=== PATIENT | female | born 1940 | race American Indian/Alaskan Native ===

== ENCOUNTER 2019-06-22 02:31 | Emergency (ER) | payer MEDICARE ==
[2019-06-22] MEDS ORDERED: cloNIDine 0.2 MG TAB PO ONE (04:03)
[2019-06-22] MEDS ORDERED: cloNIDine 0.2 MG TAB ONE (04:06)
--- NOTE | 2019-06-22 04:07 | Emergency Department Report ---
ED General Adult HPI - General Chief complaint: High BP Stated complaint: HYPERTENSION/HIGH BP Time Seen by Provider: 06/22/19 03:57 Source: patient, EMS Mode of arrival: Ambulatory Limitations: No Limitations - History of Present Illness Initial comments: Patient is 78 years old female with history of hypertension and history of mitral valve prolapse. Patient presented to the ER accompanied by her 2 daughters for evaluation of high blood pressure. Patient stated that since yesterday she noticed that her blood pressure is high. Patient stated that she is compliant with her medication which is metoprolol 50 mg daily. Patient denied any headache, neck pain, chest pain, shortness of breath, abdominal pain, weakness numbness or tingling sensation. - Related Data Allergies Allergy/AdvReac Type Severity Reaction Status Date / Time No Known Allergies Allergy Verified 06/22/19 04:06 ED Review of Systems ROS: Stated complaint: HYPERTENSION/HIGH BP Other details as noted in HPI Comment: All other systems reviewed and negative Constitutional: denies: chills, fever Respiratory: denies: shortness of breath Cardiovascular: denies: chest pain Gastrointestinal: denies: abdominal pain, nausea, vomiting Neurological: denies: headache, weakness, numbness, paresthesias, confusion, abnormal gait ED Past Medical Hx - Past Medical History Previous Medical History?: Yes Hx Hypertension: Yes Additional medical history: Mitral valve prolapse, heart murmur, irregular heartbeat - Surgical History Past Surgical History?: Yes Additional Surgical History: Catarack - Social History Smoking Status: Never Smoker Substance Use Type: None ED Physical Exam - General Limitations: No Limitations General appearance: alert, in no apparent distress - Head Head exam: Present: atraumatic, normocephalic, normal inspection - Eye Eye exam: Present: normal appearance - ENT ENT exam: Present: normal exam, normal orophraynx, mucous membranes moist - Neck Neck exam: Present: normal inspection, full ROM. Absent: tenderness, meningismus, lymphadenopathy, thyromegaly - Respiratory Respiratory exam: Present: normal lung sounds bilaterally - Cardiovascular Cardiovascular Exam: Present: regular rate, normal rhythm, normal heart sounds - GI/Abdominal GI/Abdominal exam: Present: soft, normal bowel sounds. Absent: distended, tenderness, guarding, rebound, rigid, organomegaly, mass, bruit, pulsatile mass, hernia - Extremities Exam Extremities exam: Present: normal inspection, full ROM, normal capillary refill - Back Exam Back exam: Present: normal inspection, full ROM. Absent: CVA tenderness (R), CVA tenderness (L), muscle spasm, paraspinal tenderness, vertebral tenderness - Neurological Exam Neurological exam: Present: alert, oriented X3, CN II-XII intact, normal gait, reflexes normal - Psychiatric Psychiatric exam: Present: normal mood - Skin Skin exam: Present: warm, intact, normal color ED Course Vital Signs 06/22/19 06/22/19 02:50 04:06 Temperature 98.7 F Pulse Rate 70 87 Respiratory 18 Rate Blood Pressure 188/84 204/84 O2 Sat by Pulse 99 Oximetry ED Medical Decision Making - Lab Data Result diagrams: 06/22/19 04:08 06/22/19 04:08 - Medical Decision Making Patient is 78 years old female with history of hypertension and history of thaddeus ral valve prolapse. Patient presented to the ER accompanied by her 2 daughters for evaluation of high blood pressure. Patient stated that since yesterday she noticed that her blood pressure is high. Patient stated that she is compliant with her medication which is metoprolol 50 mg daily. Patient denied any headache, neck pain, chest pain, shortness of breath, abdominal pain, weakness numbness or tingling sensation. BP in ER 214/96 Patient remain asymptomatic in the emergency room. Patient received clonidine 0.2 mg that brought the blood pressure down to 139/65. Patient advised to follow-up with our primary care physician in the next 2-3 days for adjustment of our blood pressure medicine. Patient also advised to return to the ER if she developed any new symptoms. Critical care attestation.: If time is entered above; I have spent that time in minutes in the direct care of this critically ill patient, excluding procedure time. ED Disposition Clinical Impression: Malignant hypertension Disposition: DC-01 TO HOME OR SELFCARE Is pt being admited?: No Condition: Stable Instructions: Hypertension (ED) Referrals: PRIMARY CARE, [Referring] - 3-5 Days
[2019-06-22 04:39] LABS: Basophils % (Auto) 0.5 % (0.0-1.8); Eosinophils % (Auto) 0.4 % (0.0-4.3); Hematocrit 36.2 % (30.3-42.9); Hemoglobin 12.2 gm/dl (10.1-14.3); Lymphocytes # (Auto) 1.3 K/mm3 (1.2-5.4); Mean Corpuscular HGB Conc 34 % (30-34); Mean Corpuscular Volume 91 fl (79-97); Monocytes # (Auto) 0.5 K/mm3 (0.0-0.8); Monocytes % (Auto) 5.6 % (0.0-7.3); Platelet Count 204 K/mm3 (140-440); Red Blood Count 3.98 M/mm3 (3.65-5.03); Red Cell Distribution Width 14.2 % (13.2-15.2)
[2019-06-22 04:55] LABS: BUN/Creatinine Ratio 12; Blood Urea Nitrogen 11 mg/dL (7-17); Calcium 9.6 mg/dL (8.4-10.2); Hemolysis Index 5
[2019-06-22 04:55] LABS: Bilirubin,Urine NEG (Negative); Blood,Urine NEG (Negative); Color,Urine Colorless (Yellow); Mucus,Urine FEW /HPF; Protein,Urine <15 mg/dL mg/dL (Negative); Urobilinogen,Urine < 2.0 mg/dL (<2.0)
[2019-06-22 04:59] LABS: Alanine Aminotransferase 7 units/L (7-56); Albumin 4.2 g/dL (3.9-5)
[2019-06-22 05:00] LABS: Bilirubin,Direct < 0.2 mg/dL (0-0.2)
[2019-06-22 06:31] VITALS: BP 134/62
== END 2019-06-22 06:22 | disposition home or self-care (01) ==
LOC: ED 02:31
DX: I10 Essential (primary) hypertension (principal); Z98.890 Other specified postprocedural states; Z79.899 Other long term (current) drug therapy
CPT/HCPCS: 36415; 80048; 80076; 81001; 85025